=== PATIENT | male | born 1990 | race African-American/Black ===

== ENCOUNTER 2021-02-26 21:20 | Emergency (ER) | payer OTHER ==
[~2021-02-26] VITALS: Ht 175.3 cm; Wt 86.4 kg
[2021-02-26 21:34] VITALS: TEMP 98
[2021-02-26 23:49] VITALS: BP 128/77; PULSE 68
== END 2021-02-26 23:53 | disposition home or self-care (01) ==
LOC: COL.ER 21:20
DX: S61.211A Laceration without foreign body of left index finger without damage to nail, initial encounter (principal); W26.0XXA Contact with knife, initial encounter

== ENCOUNTER → 2021-10-21 | Outpatient (CLI) | payer OTHER | LOC: MHCPAIN 09:51 | DX: M54.2 Cervicalgia (principal); M79.18 Myalgia, other site; G89.29 Other chronic pain | CPT/HCPCS: G0463 ==